=== PATIENT | female | born 1975 | race Native Hawaiian/Other Pacific Islander ===

== ENCOUNTER 2016-08-16 08:52 | Outpatient (CLI) | payer BC | END 2016-08-16 19:10 | disposition home or self-care (01) | LOC: MAMMO 08:52 | DX: Z12.31 Encounter for screening mammogram for malignant neoplasm of breast (principal) | CPT/HCPCS: G0202-TC ==

== ENCOUNTER 2017-09-01 08:28 | Outpatient (CLI) | payer BC | END 2017-09-01 19:25 | disposition home or self-care (01) | LOC: MAMMO 08:28 | DX: Z12.31 Encounter for screening mammogram for malignant neoplasm of breast (principal) ==

== ENCOUNTER 2018-09-04 08:51 | Outpatient (CLI) | payer BC | END 2018-09-04 19:22 | disposition home or self-care (01) | LOC: MAMMO 08:51 | DX: Z12.31 Encounter for screening mammogram for malignant neoplasm of breast (principal) ==

== ENCOUNTER 2020-02-08 08:38 | Outpatient (CLI) | payer BC | END 2020-02-09 03:33 | disposition home or self-care (01) | LOC: MAMMO 08:38 | DX: Z12.31 Encounter for screening mammogram for malignant neoplasm of breast (principal) ==

== ENCOUNTER 2021-03-20 08:43 | Outpatient (CLI) | payer OTHER | END 2021-03-20 20:48 | disposition home or self-care (01) | LOC: MAMMO 08:43 | PROVIDERS: ATTEND Obstetrics & Gynecology | DX: Z12.31 Encounter for screening mammogram for malignant neoplasm of breast (principal) ==

== ENCOUNTER 2022-03-22 08:57 | Outpatient (CLI) | payer OTHER | END 2022-03-22 19:58 | disposition home or self-care (01) | LOC: MAMMO 08:57 | PROVIDERS: ATTEND Obstetrics & Gynecology | DX: Z12.31 Encounter for screening mammogram for malignant neoplasm of breast (principal) ==